=== PATIENT | female | born 2000 | race Caucasian/White ===

== ENCOUNTER 2021-03-03 14:13 | Emergency (ER) | payer BC ==
[~2021-03-03] VITALS: Ht 177.8 cm; Wt 95.0 kg
[2021-03-03 14:26] VITALS: BP 161/77
[2021-03-03] MEDS ORDERED: BENZOCAINE ONE 20% MUCOSAL SPRAY. MM (14:45)
[2021-03-03] MEDS ORDERED: TRANEXAMIC ACID 1,000 MG/10 ML VIAL. TOP ONE (14:45)
[2021-03-03] MEDS ORDERED: LIDOCAINE 1%/EPI 1:100,000 20 ML VIAL. IJ ONE (14:45)
[2021-03-03] MEDS ORDERED: ONDANSETRON PF 4 MG/2 ML VIAL. IVP ONE (15:15)
[2021-03-03] MEDS ORDERED: IV NORMAL SALINE 1,000ML 1,000 ML IV ONE (15:15)
--- NOTE | 2021-03-03 16:10 | PHYS DOC ---
Past History Past Surgical History: Tonsillectomy Alcohol Use: None General Adult EDM: Chief Complaint: POST-OP PROBLEM HPI: HPI: Patient is a 20-year-old female coming in for tonsillar bleeding after tonsillectomy earlier today, about 4 hours prior to arrival. Patient states there was no no complications with the surgery back she got home started having bright red blood per mouth, says she has been sent out and tried using cold water and ice chips as she had been directed. She has not vomited but only spit up blood, states she feels small pain in the right tonsil area and feels a trickle of fluid down her throat. Denies any nausea or abdominal pain. Review of Systems: Review of Systems: All other systems within normal limits except for as noted in the HPI Current Medications: Current Meds: Current Medications Medications (Trade) Dose Ordered Sig/Abimael Start Time Stop Time Status Last Admin Dose Admin Benzocaine (Hurricaine One) 1 spray 1X ONCE 03/03/21 14:45 03/03/21 14:46 DC Lidocaine/ Epinephrine (Xylocaine 1%-Epi 1:100,000) 20 ml 1X ONCE 03/03/21 14:45 03/03/21 14:46 DC Ondansetron HCl (Zofran) 4 mg 1X ONCE 03/03/21 15:15 03/03/21 15:16 DC 03/03/21 15:22 4 MG Sodium Chloride 1,000 ml @ 1,000 mls/hr 1X ONCE 03/03/21 15:15 03/03/21 16:14 Tranexamic Acid (Cyklokapron) 1,000 mg 1X ONCE 03/03/21 14:45 03/03/21 14:46 DC Allergies: Allergies: Allergies Coded Allergies Type Severity Reaction Last Updated Verified No Known Drug Allergies 03/03/21 No Physical Exam: PE: Constitutional: Well developed, well nourished, no acute distress, non-toxic appearance. [] HENT: Normocephalic, atraumatic, bilateral external ears normal, nose normal. Post tonsillar surgical changes, large clot on right with red blood around it but no active bleeding identified. [] Eyes: PERRLA, conjunctiva normal, no discharge. [] Neck: No rigidity, supple, no stridor. [] Cardiovascular: Regular rate and rhythm, brisk cap refill [] Lungs & Thorax: Non labored symmetric respirations, no tachypnea or respiratory distress [] Abdomen: Soft, nondistended. Skin: Warm, dry, no erythema, no rash. [] Back: Unremarkable Extremities: No deformities, range of motion grossly intact, no lower extremity edema [] Neurologic: Alert and oriented X 3, no focal deficits noted. [] Psychologic: Affect normal, judgement normal, mood normal. [] Current Patient Data: Vital Signs: Vital Signs Date Time Temp Pulse Resp B/P (MAP) Pulse Ox O2 Delivery O2 Flow Rate FiO2 03/03/21 14:26 97.8 115 20 161/77 (105) 97 Room Air EKG: EKG: [] Radiology/Procedures: Radiology/Procedures: [] Heart Score: C/O Chest Pain: No Risk Factors: Risk Factors: DM, Current or recent (<one month) smoker, HTN, HLP, family history of CAD, obesity. Risk Scores: Score 0 - 3: 2.5% MACE over next 6 weeks - Discharge Home Score 4 - 6: 20.3% MACE over next 6 weeks - Admit for Clinical Observation Score 7 - 10: 72.7% MACE over next 6 weeks - Early Invasive Strategies Course & Med Decision Making: Course & Med Decision Making Patient started on nebulized lidocaine with epinephrine. Consult placed to ENT, Dr. Hill, who came to see the patient from his clinic. By that time bleeding had stopped and patient states that during the nebulizer treatment she felt a clot down her throat. On reexamination no active bleeding. Plan made with ENT if she starts bleeding again to go directly to [place]. Aftab Disclaimer: Aftab Disclaimer: This electronic medical record was generated, in whole or in part, using a voice recognition dictation system. Departure Departure: Impression: Primary Impression: Primary post tonsillectomy hemorrhage Disposition: HOME / SELF CARE / HOMELESS Condition: GUARDED Referrals: ACE LIZ MD (PCP) Patient Instructions: Diet - Following Tonsillectomy, Adult Additional Instructions: If bright red bleeding resumes and does not resolve with Hurricaine spray or ice chips go directly to [facility] and have them call Dr. Bill Gutierrez at [phone] HOOD LATIF MD Mar 03, 2021 16:10
[2021-03-03 16:17] LABS: BASO % 0 % (0-3); EOS % 0 % (0-3); HEMATOCRIT 42.6 % (36.0-47.0); HEMOGLOBIN 14.3 g/dL (12.0-15.5); LYMPH # 0.8 x10^3/uL (1.0-4.8); LYMPH % 6 % (24-48); MEAN CORPUSCULAR HEMOGLOBIN 31 pg (25-35); MEAN CORPUSCULAR HGB CONC 34 g/dL (31-37); MEAN CORPUSCULAR VOLUME 91 fL (79-100); MONO # 0.1 x10^3/uL (0.0-1.1); MONO % 1 % (0-9); NEUT # 13.3 x10^3uL (1.8-7.7); NEUT % 93 % (31-73); PLATELET COUNT 336 x10^3/uL (140-400); RED BLOOD COUNT 4.68 x10^6/uL (3.50-5.40); RED CELL DISTRIBUTION WIDTH 12.9 % (11.5-14.5); WHITE BLOOD COUNT 14.3 x10^3/uL (4.0-11.0)
[2021-03-03] MEDS ORDERED: OXYC1TAB15 PO (16:45)
--- NOTE | 2021-03-03 20:30 | OP ---
DATE OF SURGERY: 03/03/2021 PREOPERATIVE DIAGNOSIS: Post-tonsillectomy hemorrhage. POSTOPERATIVE DIAGNOSIS: Post-tonsillectomy hemorrhage. PROCEDURE PERFORMED: Control of postoperative tonsillectomy hemorrhage. ESTIMATED BLOOD LOSS: Was approximately 25-30 mL, but the blood that was present when the patient presented, which included evacuation of her stomach and her oropharynx was estimated to be approximately 350-400 mL ANESTHESIA: General anesthetic. INDICATIONS FOR THE PROCEDURE: Bleeding that controlled after a tonsillectomy that was performed this morning in [place], [place] and as a result of close observation, it was felt that control of the bleeding was necessary due to the amount that was occurring. DESCRIPTION OF PROCEDURE: The patient was brought to the operating room and placed on the operating table in supine position. She was given a general anesthetic and was safely intubated. A large quantity of clotted blood was extracted from her oropharynx using a Yankauer suction, after which a nasogastric tube was placed in her esophagus and gentle extraction of blood from her stomach occurred. The oral cavity was then evacuated of blood using an Yankauer suction and the left tonsil fossa was cleared. No active bleeding was there. In the right tonsil fossa was a large clot, which was cleared using the Yankauer suction and with forceps and exposing the bed of the tonsil fossa, identifying bleeding in the central area, which was then gradually controlled with light pressure and then application of suction cautery. When adequate control of bleeding occurred and the oral cavity and the pharynx were clear of blood, the stomach was then evacuated until clear and the procedure was completed. The oral cavity was irrigated and suctioned noting no bleeding and the patient was then recovered from her anesthesia and taken to recovery room in stable condition. JOSE DANIEL DR: Melanie TID: [id number]
== END 2021-03-03 17:08 | disposition home or self-care (01) ==
LOC: ER 14:13
DX: J95.830 Postprocedural hemorrhage of a respiratory system organ or structure following a respiratory system procedure (principal); Z20.822 Contact with and (suspected) exposure to COVID-19
CPT/HCPCS: 36415; 84702; 85025; 87426; 96361; 96374; 99283; C9803; J2405; J7030; U0003